=== PATIENT | male | born 1975 | race American Indian/Alaskan Native ===

== ENCOUNTER 2017-01-19 17:05 | Emergency (ER) | payer SELFPAY ==
--- NOTE | 2017-01-19 18:18 | XRay Report ---
FINAL REPORT EXAM: XR ELBOW 2V RT HISTORY: RIGHT ELBOW INJURY / PAIN TECHNIQUE: AP and lateral views of the right elbow PRIORS: None. FINDINGS: No evidence for acute fracture or dislocation is seen. The soft tissues are unremarkable. The anterior fat pad is normal. No posterior fat pad is noted. Bony mineralization is normal. IMPRESSION: No acute soft tissue or bony abnormality noted..
--- NOTE | 2017-01-19 18:21 | XRay Report ---
FINAL REPORT EXAM: XR SHOULDER 2 RT HISTORY: RIGHT SHOULDER INJURY / PAIN TECHNIQUE: AP, Y, and oblique views of the right shoulder PRIORS: None. FINDINGS: There is no evidence of acute fracture or dislocation. Joint spaces are maintained and bony mineralization is normal. Soft tissues are unremarkable. There is a remote healed fracture of the midshaft right humerus versus a large bony osteophyte related to tendinous insertion. Spurring off the superior aspect of the acromioclavicular joint is noted. IMPRESSION: No acute abnormality identified in the right shoulder. Spurring off the superior AC joint.
[2017-01-19] MEDS ORDERED: MOTRIN PO ONE (19:51)
[2017-01-19] MEDS ORDERED: NORCO 5/325 PO ONE (19:51)
--- NOTE | 2017-01-19 20:39 | Emergency Department Report ---
ED Extremity Problem HPI - General Chief complaint: Shoulder Injury Stated complaint: RIGHT SHOULDER DISLOCATED Time Seen by Provider: 01/19/17 19:42 Source: patient Mode of arrival: Ambulatory Limitations: No Limitations - History of Present Illness Initial comments: PT c/o R shoulder injury. PT states he was playing basketball today before noon and he collided with another player. PT states he felt a "pop" in his R shoulder. PT denies previous shoulder injury. PT states he is unable to move R arm. PT states his arm popped out of place. PT denies previous hx of arm injury. MD Complaint: joint paint -: Sudden, hour(s) Location: right, upper extremity (shoulder ) History of Same: No Severity scale (0 -10): 10 Quality: sharp, constant Consistency: constant Improves with: cold therapy Worsens with: palpation, other (attempting to move R arm ) Associated Symptoms: denies other symptoms - Related Data Previous Rx's Medication Instructions Recorded Last Taken Type Acetaminophen/Codeine [Tylenol #3] 1 tab PO Q6H PRN #12 tab 01/19/17 Unknown Rx Ibuprofen [Motrin] 600 mg PO Q8H PRN #15 tablet 01/19/17 Unknown Rx Allergies Allergy/AdvReac Type Severity Reaction Status Date / Time No Known Allergies Allergy Verified 01/19/17 17:21 ED Review of Systems ROS: Stated complaint: RIGHT SHOULDER DISLOCATED Other details as noted in HPI Comment: All other systems reviewed and negative Constitutional: denies: fever Cardiovascular: denies: chest pain Gastrointestinal: denies: abdominal pain Musculoskeletal: as per HPI. denies: back pain Skin: denies: lesions Neurological: denies: headache, weakness, numbness, paresthesias ED Past Medical Hx - Past Medical History Previous Medical History?: No - Surgical History Additional Surgical History: back surgery - Social History Smoking Status: Never Smoker Substance Use Type: None - Medications Home Medications: Home Medications Medication Instructions Recorded Confirmed Last Taken Type Acetaminophen/Codeine [Tylenol #3] 1 tab PO Q6H PRN #12 tab 01/19/17 Unknown Rx Ibuprofen [Motrin] 600 mg PO Q8H PRN #15 tablet 01/19/17 Unknown Rx ED Physical Exam - General Limitations: No Limitations General appearance: alert, in no apparent distress, appears intoxicated - Head Head exam: Present: atraumatic, normocephalic, normal inspection - Eye Eye exam: Present: normal appearance. Absent: conjunctival injection - ENT ENT exam: Present: normal exam, normal external ear exam - Neck Neck exam: Present: normal inspection, full ROM, other (no post midline C-spine tenderness ). Absent: tenderness - Respiratory Respiratory exam: Present: normal lung sounds bilaterally. Absent: respiratory distress, wheezes - Cardiovascular Cardiovascular Exam: Present: regular rate, normal rhythm, normal heart sounds - GI/Abdominal GI/Abdominal exam: Present: soft. Absent: tenderness - Extremities Exam Extremities exam: Present: normal inspection, tenderness, normal capillary refill. Absent: full ROM - Expanded Upper Extremity Exam Right Shoulder Exam: Present: normal inspection, tenderness. Absent: full ROM ( decreased rom due to pain ), swelling, abrasion, ecchymosis, deformity, tenderness over AC joint Elbow exam: Present: normal inspection, full ROM, tenderness (medial elbow ). Absent: swelling, ecchymosis Hand Wrist exam: Present: normal inspection, full ROM. Absent: tenderness - Back Exam Back exam: Present: normal inspection, full ROM. Absent: tenderness, CVA tenderness (R), CVA tenderness (L), muscle spasm, paraspinal tenderness, vertebral tenderness - Neurological Exam Neurological exam: Present: alert, oriented X3, normal gait - Psychiatric Psychiatric exam: Present: normal affect, normal mood - Skin Skin exam: Present: warm, dry, intact ED Course Vital Signs 01/19/17 17:16 Temperature 98.4 F Pulse Rate 88 Respiratory 16 Rate Blood Pressure 152/96 O2 Sat by Pulse 97 Oximetry - Reevaluation(s) Reevaluation #1: 01/19/17 20:49 PT aware of XR results. PT states decrease in pain after pain medication. PT aware he will need to follow up with ortho. pt has no questions at this time. - Pulse Oximetry Interpretation Digit-Finger Initial Pulse Oximetry Readin Actions Taken: none ED Medical Decision Making - Radiology Data Radiology results: report reviewed, image reviewed R shoulder - no fx or dislocation R elbow - no fx or dislocation - Differential Diagnosis dislocation, fracture, strain Critical Care Time: No Critical care attestation.: If time is entered above; I have spent that time in minutes in the direct care of this critically ill patient, excluding procedure time. ED Disposition Clinical Impression: Right elbow pain Right shoulder injury Qualifiers: Encounter type: initial encounter Qualified Code(s): S49.91XA - Unspecified injury of right shoulder and upper arm, initial encounter Disposition: DISCHARGED TO HOME OR SELFCARE Is pt being admited?: No Does the pt Need Aspirin: No Condition: Stable Instructions: Rotator Cuff Injury (ED), Shoulder Sprain (ED) Additional Instructions: No driving or ETOH After Tylenol #3 Follow up with PCP in 3-5 days for bp recheck sling for comfort x 7 days Prescriptions: Acetaminophen/Codeine [Tylenol #3] 1 tab PO Q6H PRN #12 tab PRN Reason: Pain , Severe (7-10) Ibuprofen [Motrin] 600 mg PO Q8H PRN #15 tablet PRN Reason: Pain Referrals: PRIMARY CARE, [Primary Care Provider] - 3-5 Days SEA SHORE MD [Staff Physician] - 3-5 Days EARLE ALMONTE MD [Staff Physician] - 3-5 Days [facility] [Outside] - 3-5 Days [facility] [Outside] - 3-5 Days Forms: Work/School Release Form(ED) Time of Disposition: 20:54
[2017-01-20 03:40] VITALS: BP 172/104
== END 2017-01-19 21:05 | disposition home or self-care (01) ==
LOC: ED 17:05
DX: S49.91XA Unspecified injury of right shoulder and upper arm, initial encounter (principal); W51.XXXA Accidental striking against or bumped into by another person, initial encounter; Y93.9 Activity, unspecified; Y92.9 Unspecified place or not applicable; Y99.9 Unspecified external cause status
CPT/HCPCS: 99284

== ENCOUNTER 2019-05-04 11:41 | Emergency (ER) | payer SELFPAY ==
--- NOTE | 2019-05-04 12:05 | Event Note ---
ED Screening Note ED Screening Note: r hip and leg pain no dysuria no fall pmh none rx none psh back surgery advil not working goodys not working This initial assessment/diagnostic orders/clinical plan/treatment(s) is/are subject to change based on patients health status, clinical progression and re- assessment by fellow clinical providers in the ED. Further treatment and workup at subsequent clinical providers discretion. Patient/guardian urged not to elope from the ED as their condition may be serious if not clinically assessed and managed. Initial orders include: ACC for Rx
[2019-05-04 12:07] VITALS: BP 136/90
--- NOTE | 2019-05-04 13:36 | Emergency Department Report ---
ED Extremity Problem HPI - General Chief complaint: Extremity Injury, Lower Stated complaint: (R) HIP PAIN Time Seen by Provider: 05/04/19 12:03 Source: patient Mode of arrival: Ambulatory Limitations: No Limitations - History of Present Illness Initial comments: 43-year-old -[place] male presents to the emergency room complaining of right hip pain for several days 1 week. Patient reports that his gotten worse today. Patient denies any fall no trauma. Patient reports that the pain is in the right side left hip and radiates down to his foot. Standing makes it worse resting makes it better. Patient reports he took Advil and Goody powders without much resolution of pain. Patient denies any past medical history takes no medications on a daily basis and has no known drug allergies. MD Complaint: extremity pain Onset/Timin -: week(s) Location: right (hip) History of Same: No -: Yes arthralgia Radiation: distal Severity scale (0 -10): 9 Consistency: constant Improves with: nothing Worsens with: weight bearing, walking Associated Symptoms: denies other symptoms - Related Data Previous Rx's Medication Instructions Recorded Last Taken Type Acetaminophen/Codeine [Tylenol #3] 1 tab PO Q6H PRN #12 tab 01/19/17 Unknown Rx Ibuprofen [Motrin] 600 mg PO Q8H PRN #15 tablet 01/19/17 Unknown Rx Naproxen [Naprosyn TAB] 500 mg PO BID #20 tablet 05/04/19 Unknown Rx predniSONE [Deltasone] 20 mg PO QDAY 5 Days #5 tab 05/04/19 Unknown Rx Allergies Allergy/AdvReac Type Severity Reaction Status Date / Time No Known Allergies Allergy Verified 01/19/17 17:21 ED Review of Systems ROS: Stated complaint: (R) HIP PAIN Other details as noted in HPI Comment: All other systems reviewed and negative ED Past Medical Hx - Past Medical History Previous Medical History?: No - Surgical History Past Surgical History?: Yes Additional Surgical History: back surgery - Social History Smoking Status: Never Smoker Substance Use Type: None - Medications Home Medications: Home Medications Medication Instructions Recorded Confirmed Last Taken Type Acetaminophen/Codeine [Tylenol #3] 1 tab PO Q6H PRN #12 tab 01/19/17 Unknown Rx Ibuprofen [Motrin] 600 mg PO Q8H PRN #15 tablet 01/19/17 Unknown Rx Naproxen [Naprosyn TAB] 500 mg PO BID #20 tablet 05/04/19 Unknown Rx predniSONE [Deltasone] 20 mg PO QDAY 5 Days #5 tab 05/04/19 Unknown Rx ED Physical Exam - General Limitations: No Limitations General appearance: alert, in no apparent distress - Head Head exam: Present: atraumatic, normocephalic - Eye Eye exam: Present: normal appearance - ENT ENT exam: Present: mucous membranes moist - Expanded Lower Extremity Exam Left Hip exam: Present: tenderness (right tenderness to the sacral notch and buttocks) Upper Leg exam: Present: normal inspection, full ROM Knee exam: Present: normal inspection, full ROM Lower Leg exam: Present: normal inspection Ankle exam: Present: normal inspection Neuro vascular tendon exam: Present: no vascular compromise - Expanded Back Exam Expanded Back exam: Sciatic Notch Tenderness: Right - Neurological Exam Neurological exam: Present: alert, oriented X3 - Psychiatric Psychiatric exam: Present: normal affect, normal mood - Skin Skin exam: Present: warm, dry, intact, normal color. Absent: rash ED Course Vital Signs 05/04/19 12:05 Temperature 97.6 F Pulse Rate 74 Respiratory 20 Rate Blood Pressure 136/90 O2 Sat by Pulse 98 Oximetry ED Medical Decision Making - Medical Decision Making 43-year-old -[place] male presents to the emergency room complaining of right hip pain for several days 1 week. Patient reports that his gotten worse today. Patient denies any fall no trauma. Patient reports that the pain is in the right side left hip and radiates down to his foot. Standing makes it worse resting makes it better. Patient reports he took Advil and Goody powders without much resolution of pain. Patient denies any past medical history takes no medications on a daily basis and has no known drug allergies. Toradol injection 30 mg and prednisone 40. Patient be discharged home on naproxen 500 mg twice a day and prednisone 20 mg by mouth daily for 5 days. He is to follow- up with orthopedic provider symptoms persist or gets worse. Critical care attestation.: If time is entered above; I have spent that time in minutes in the direct care of this critically ill patient, excluding procedure time. ED Disposition Clinical Impression: Right-sided low back pain with sciatica Qualifiers: Chronicity: acute Sciatica laterality: sciatica of right side Qualified Code(s): M54.41 - Lumbago with sciatica, right side Disposition: DC-01 TO HOME OR SELFCARE Is pt being admited?: No Does the pt Need Aspirin: No Condition: Stable Instructions: Lumbar Radiculopathy (ED), Sciatica (ED) Additional Instructions: Please take medication for pain as prescribed. Follow-up with orthopedic provider I have listed Dr. Canales's name below for your convenience. Prescriptions: predniSONE [Deltasone] 20 mg PO QDAY 5 Days #5 tab Naproxen [Naprosyn TAB] 500 mg PO BID #20 tablet Referrals: PRIMARY CAREMD [Primary Care Provider] - 3-5 Days EARLE CANALES MD [Staff Physician] - 3-5 Days Forms: Work/School Release Form(ED)
[2019-05-04] MEDS ORDERED: DELTASONE PO ONE (13:37)
[2019-05-04] MEDS ORDERED: TORADOL IM ONE (13:37)
== END 2019-05-04 13:51 | disposition home or self-care (01) ==
LOC: ED 11:41
DX: M54.41 Lumbago with sciatica, right side (principal); Z98.890 Other specified postprocedural states
CPT/HCPCS: J1885; J7512; 96372

== ENCOUNTER 2019-07-24 09:59 | Outpatient (CLI) | payer OTHER ==
--- NOTE | 2019-07-24 10:50 | XRay Report ---
LUMBOSACRAL SPINE, 3 VIEWS INDICATION: LOW BACK PAIN. COMPARISON: None. IMPRESSION: Normal alignment of the lumbar spine. There is suggestion of mild dextrocurvature of the thoracolumbar junction. Mild to moderate disc space narrowing is identified at L5-S1. A right later al bridging osteophyte is identified at T12-L1. There is mild diffuse facet arthropathy. No acute os seous or soft tissue abnormality. RIGHT HIP, 2 VIEWS INDICATION: Right hip pain. COMPARISON: None. IMPRESSION: No acute osseous or soft tissue abnormality. No significant DJD. Chronic deformity wi th mild surrounding heterotopic calcifications are suspected in the inferior right pelvic ramus. Signer Name: Elbert Waters Jr, MD Signed: 07/24/2019 10:46 AM Workstation Name: [id number]
== END 2019-07-24 10:00 | disposition home or self-care (01) ==
LOC: XRAY 09:59
PROVIDERS: ATTEND Internal Medicine
DX: M48.07 Spinal stenosis, lumbosacral region (principal); M12.88 Other specific arthropathies, not elsewhere classified, other specified site; M25.78 Osteophyte, vertebrae; M25.551 Pain in right hip
CPT/HCPCS: 72100